=== PATIENT | female | born 1955 | race Caucasian/White ===

== ENCOUNTER 2017-05-17 16:42 | Emergency (ER) | payer BC ==
[2017-05-17] MEDS ORDERED: ONDANSETRON 4 MG/2 ML VIAL IVP ONE (17:04)
[2017-05-17] MEDS ORDERED: NS 500 ML IV ONE ×2 (17:04→18:04)
[2017-05-17 17:58] LABS: % IMMATURE GRANULYOCYTES 0.3 % (0.0-1.1); ABSOLUTE IMMATURE GRANULOCYTES 0.02 10^3/uL (0.00-0.10); ADD DIFF? NO; ADD MORPH? NO; ADD SCAN? NO; ATYPICAL LYMPHOCYTE FLAG 90 (0-99); FRAGMENT RBC FLAG 0 (0-99); HEMOGLOBIN 12.2 g/dL (12.6-16.3); LEFT SHIFT FLG 0 (0-99); LIPEMIA HEMOLYSIS FLAG 90 (0-99); MEAN CELL HEMOGLOBIN 29.5 pg (27.9-34.1); MEAN CELL HEMOGLOBIN CONCENTR. 33.9 g/dL (32.4-36.7); MEAN PLATELET VOLUME 9.5 fL (8.7-11.7); PLATELET CLUMPS FLAG 0 (0-99); PLATELET COUNT 216 10^3/uL (150-400); RED BLOOD CELL COUNT 4.14 10^6/uL (4.18-5.33); RED CELL DISTRIBUTION WIDTH 13.3 % (11.5-15.2)
--- NOTE | 2017-05-17 18:01 | EDPHY ---
H & P Time Seen by Provider: 05/17/17 17:45 HPI/ROS: CHIEF COMPLAINT: Vomiting, headache HISTORY OF PRESENT ILLNESS: This patient is a 61 year old female complaining of vomiting onset this morning. Yesterday afternoon, she states she began feeling sick: achy, frontal headache, generalized weakness. Today, she reports multiple episodes of vomiting and associated nausea. She states she has been unable to eat, but she tolerated Tylenol and Motrin this afternoon. She experienced some relief in her headache, but she still has a mild generalized headache. She endorses low- grade fever, which she states was 100.6 F at home. She denies diarrhea, hematuria, dysuria, any focal abdominal pain, or other associated symptoms. She denies any trauma or other precipitating event. She states she is generally quite healthy. REVIEW OF SYSTEMS: Eyes: No visual changes ENT: No sore throat Respiratory: No cough, no shortness of breath Cardiac: No chest pain Gastrointestinal: no abdominal pain Genitourinary: no dysuria Musculoskeletal: No leg pain or swelling Skin: No rash Neurological: no weakness Psychiatric: No depression Past Medical/Surgical History: Low back pain. Depression Herpes Social History: Nonsmoker. Smoking Status: Never smoked Physical Exam: General Appearance: Pleasant, smiling. Alert, no distress Eyes: Pupils equal and round, no conjunctival pallor or injection ENT, Mouth: Mucous membranes moist Neck: Normal inspection Respiratory: Lungs are clear to auscultation Cardiovascular: Regular rate and rhythm Gastrointestinal: Abdomen is soft and non- tender Neurological: A&O, nonfocal, normal gait Skin: Warm and dry, no rash Extremities: Nontender, no pedal edema Psychiatric: Mood and affect normal Constitutional: Initial Vital Signs Temperature (C) 36.9 C 05/17/17 16:43 Heart Rate 82 05/17/17 16:43 Respiratory Rate 16 05/17/17 16:43 Blood Pressure 115/80 05/17/17 16:43 O2 Sat (%) 91 L 05/17/17 16:43 O2 Delivery Mode Room Air Allergies/Adverse Reactions: No Known Allergies Allergy (Unverified 05/17/17 16:47) Medical Decision Making ED Course/Re-evaluation: This patient is a well-appearing 61 year old female with vomiting, myalgias and headache. Clinical presentation consistent with viral syndrome. Plan to administer 4mg IV Zofran to treat nausea and Reglan, Benadryl, and Toradol to treat headache. The patient is feeling improved. Tolerating oral fluids well. Abdomen remained soft and nontender. Plan to discharge home in good condition with Zofran prepack. The patient is comfortable with this plan. Differential Diagnosis: Differential diagnosis includes does not limited to severe dehydration, cholecystitis, meningitis, sinusitis, UTI. - Data Points Laboratory Results: Laboratory Results 05/17/17 Unknown 05/17/17 Unknown Medications Given: Discontinued Medications Diphenhydramine HCl (Benadryl Injection) 25 mg IVP EDNOW ONE Stop: 05/17/17 19:17 Last Admin: 05/17/17 19:32 Dose: 25 mg Sodium Chloride (Ns) 500 mls @ 1,000 mls/hr IV ONCE ONE PRN Reason: Protocol Stop: 05/17/17 17:33 Last Admin: 05/17/17 17:18 Dose: 500 mls Sodium Chloride (Ns) 500 mls @ 1,000 mls/hr IV ONCE ONE PRN Reason: Protocol Stop: 05/17/17 18:33 Last Admin: 05/17/17 18:17 Dose: 500 mls Ketorolac Tromethamine (Toradol) 15 mg IVP EDNOW ONE Stop: 05/17/17 18:05 Last Admin: 05/17/17 18:16 Dose: 15 mg Metoclopramide HCl (Reglan Injection) 10 mg IVP EDNOW ONE Stop: 05/17/17 19:17 Last Admin: 05/17/17 19:32 Dose: 10 mg Ondansetron HCl (Zofran) 4 mg IVP EDNOW ONE Stop: 05/17/17 17:05 Last Admin: 05/17/17 17:18 Dose: 4 mg Ondansetron HCl (Zofran Odt 4 Mg Prepack#2) 1 btl TAKEHOME EDNOW ONE Stop: 05/17/17 19:33 Last Admin: 05/17/17 19:47 Dose: 1 btl Departure - Departure Disposition: Home, Routine, Self-Care Clinical Impression: Vomiting Qualifiers: Vomiting type: unspecified Vomiting Intractability: non-intractable Nausea presence: with nausea Qualified Code(s): R11.2 - Nausea with vomiting, unspecified Condition: Good Instructions: Acute Nausea and Vomiting (ED) Additional Instructions: 1. Follow up with your primary care provider for symptoms unresolved in the next one to two days. 2. Stay well hydrated. We have prescribed you Zofran to treat nausea as needed. You make take one every six hours. 3. Return to the Emergency Department if you develop a worsening fever, uncontrollable vomiting or diarrhea, uncontrollable head or back pain, or other worsening of condition. Referrals: QUENTIN DENIS [Other] - As per Instructions Report Scribed for: Manuela Cote Report Scribed by: Kenia Leroy Date of Report: 05/17/17 Time of Report: 18:03 Physician Review and Approval Statement: 05/17/17 18:03 Portions of this note were transcribed by a medical research associate. I personally performed a history, physical exam, medical decision making, and confirmed accuracy of information the transcribed note.
[2017-05-17 18:02] LABS: ANION GAP 11 mEq/L (8-16); CARBON DIOXIDE 21 mEq/l (22-31); CHLORIDE 99 mEq/L (97-110); CREATININE 0.7 mg/dL (0.6-1.0); GLOMERULAR FILTRATION RATE > 60; GLUCOSE 118 mg/dL (70-100); POTASSIUM 3.7 mEq/L (3.5-5.2); SODIUM 131 mEq/L (134-144)
[2017-05-17] MEDS ORDERED: KETOROLAC 15 MG/1 ML SDV IVP ONE (18:04)
[2017-05-17 18:40] LABS: BILIRUBIN,TOTAL 0.7 mg/dL (0.1-1.4); BILIRUBIN-CONJUGATED 0.4 mg/dL (0.0-0.5); BILIRUBIN-UNCONJUGATED 0.3 mg/dL (0.0-1.1); TOTAL PROTEIN 6.7 g/dL (6.3-8.2)
[2017-05-17] MEDS ORDERED: METOCLOPRAMIDE 10 MG/2 ML VIAL IVP ONE (19:16)
[2017-05-17] MEDS ORDERED: ONDANSETRON 4MG PREPACK#2 BTL TAKEHOME ONE (19:32)
[2017-05-17 19:40] VITALS: BP 114/68; PULSE 64; RESP 15; TEMP 98.8; O2SAT 92
== END 2017-05-17 19:48 | disposition home or self-care (01) ==
DX: R11.2 Nausea with vomiting, unspecified (principal); E86.9 Volume depletion, unspecified
CPT/HCPCS: 96374; J1200; J1885; J2405; J2765